=== PATIENT | female | born 1995 | race Caucasian/White ===

== ENCOUNTER 2023-07-06 13:40 | Emergency (ER) | payer OTHER, BC ==
[2023-07-06] MEDS ORDERED: fentaNYL 50 mcg/mL 1 mL Vial ONE (13:56)
[2023-07-06] MEDS ORDERED: PROPOFOL 20 ML ONE (14:03)
[2023-07-06 14:25] LABS: #Basophils 0.1 thou/uL (0.0-0.2); #Eosinphils 0.1 thou/uL (0.0-0.7); #Monocytes 0.8 thou/uL (0.11-0.59); #Neutrophils 14.3 thou/uL (1.40-6.50); %Basophils 0.3 % (0.0-1.0); %Eosinophils 0.8 % (0.0-10.0); %Lymphocytes 12.9 % (21.0-51.0); %Monocytes 4.3 % (0.0-10.0); %Neutrophils 80.2 % (42.0-75.0); Hematocrit 36.2 % (36.0-47.0); Hemoglobin 12.4 g/dL (12.0-16.0); Mean Corpuscular HGB CONC 34.3 g/dL (32.0-36.0); Mean Corpuscular Hemoglobin 31.2 pg (27.0-31.0); Mean Platelet Volume 10.9 fL (7.4-10.4); Platelet Count 225 10x3/uL (130-400); RBC Distribution Width 11.8 % (11.5-14.5); Red Blood Cell (RBC) Count 3.98 mill/uL (4.20-5.40); White Blood Cell (WBC) Count 17.8 10x3/uL (4.8-10.8)
[2023-07-06 14:46] LABS: ALT (SGPT) 39 U/L (8-55); AST (SGOT) 48 U/L (5-34); Acetaminophen Less than 10 mcg/mL (10.0-30.0); Albumin 3.6 g/dL (3.5-5.0); Alcohol Less than 10.0 mg/dL (Less than 10); Alkaline Phosphatase 39 U/L (40-110); Anion Gap 14 mmol/L (10-20); BUN (Urea Nitrogen) 4 mg/dL (7.0-18.7); Bilirubin, Total 0.2 mg/dL (0.2-1.2); Calc. Creatinine Clearance 0 mL/min (70-130); Calcium 8.3 mg/dL (7.8-10.44); Carbon Dioxide 18 mmol/L (22-29); Chloride 106 mmol/L (98-107); Estimated GFR 126; Globulin 2.5 g/dL (2.4-3.5); Glucose 133 mg/dL (70-105); Lipase 55 U/L (8-78); Potassium 3.1 mmol/L (3.5-5.1); Protein, Total 6.1 g/dL (6.0-8.3); Salicylate Less than 8.0 mg/dL (15.0-30.0); Sodium 135 mmol/L (136-145)
[2023-07-06 15:10] LABS: Troponin I Less than 0.010 ng/mL (< 0.028)
[2023-07-06] MEDS ORDERED: Ondansetron PF 4 MG/2 ML Vial ONE (15:49)
[2023-07-06] MEDS ORDERED: Morphine 4 MG/ML VIAL ONE (15:49)
== END 2023-07-06 16:25 | disposition short-term general hospital (02) ==
LOC: ERS 13:40
DX: S82.451A Displaced comminuted fracture of shaft of right fibula, initial encounter for closed fracture (principal); S72.301A Unspecified fracture of shaft of right femur, initial encounter for closed fracture; V89.2XXA Person injured in unspecified motor-vehicle accident, traffic, initial encounter
CPT/HCPCS: 27502; 27818; 71045; 72170; 80053; 80307; 83690; 84484; 85025; 96374; 96375; G0390; J2270; J2405; J2704; J3010

== ENCOUNTER 2025-06-16 08:21 | Outpatient (CLI) | payer BC ==
[2025-06-16 09:04] LABS: BHCG - Serum Negative (NEGATIVE); Pregs Control Background? CLEAR/WHITE (CLR/WHITE); Pregs Control Bar Appear? YES (CONTROL BAR)
[2025-06-16] MEDS ORDERED: Sincalide 5 MCG VIAL ONE (10:29)
[2025-06-16] MEDS ORDERED: Bacteriostatic Normal Saline 30 ML VIAL ONE (10:29)
== END 2025-06-16 08:22 | disposition home or self-care (01) ==
LOC: NM 08:21
PROVIDERS: ATTEND Internal Medicine
DX: Z32.02 Encounter for pregnancy test, result negative (principal); R10.11 Right upper quadrant pain; R10.84 Generalized abdominal pain; R11.0 Nausea
CPT/HCPCS: 36415; 78227; 84703; A9537; J2805